=== PATIENT | female | born 1960 | race Two or more races ===

== ENCOUNTER 2025-05-27 23:02 | Emergency (ER) | payer OTHER ==
[~2025-05-27] VITALS: Ht 175.3 cm; Wt 70.4 kg
[~2025-05-27 23:02] MED LIST: PROZAC
[2025-05-27] MEDS: SODIUM CHLORIDE 0.9% 1,000 ML IV STA (23:15)
[2025-05-27] MEDS: FAMOTIDINE (10MG/ML) 2ML VL IV STA (23:16)
[2025-05-27] MEDS: ALBUTEROL SULF 2.5 MG/0.5ML(0.5%) NEB SOLN NEB STA (23:19)
--- NOTE | 2025-05-27 23:59 | ED.PDOC ---
HPI Allergic reaction HPI Comments 64-year-old female with no significant past medical history presents to the ED for the chief complaint of an unknown reason for a allergic reaction, with the associated tongue swelling, shortness of breath and hives to bilateral upper extremities. Patient states that her allergic reaction started approximately 30 minutes before arrival to the ED intense since developed an associated headache with no alleviating factors at this time. Patient denies any reasons for a possible allergic reaction, and notes that she is currently unaware of any known allergies. GCS is noted to be 15, and all vital signs were noted to be stable at this time. Patient denies any chest pain, abdominal pain, blurry vision, generalized weakness, or any other associated symptoms, no modifiers at this time. PHYSICAL EXAM: General: Awake, alert and oriented. No acute distress. Skin: Skin in warm, dry and intact. Appropriate color for ethnicity. HEENT: The head is normocephalic and atraumatic. Conjunctivae are clear without exudates or hemorrhage. Sclera is non-icteric. EOM are intact. No signs of nystagmus. Eyelids are normal in appearance without swelling or lesions. Oral mucosa is pink and moist Neck: The neck is supple with normal range of motion. No JVD. Cardiac: Heart rate and rhythm are normal. No murmurs, gallops, or rubs are auscultated. Respiratory: No stridor. Lung sounds clear to auscultation bilaterally Abdominal: Abdomen is soft, non-tender without distention, guarding or rigidity. Bowel sounds are present and normoactive in all four quadrants. Extremities: Hives noted to bilateral upper extremities Neurological: The patient is awake, alert and oriented to person, place, and time with normal speech. Speech is clear. There is no facial asymmetry. Psychiatric: Appropriate mood and affect. Good judgement and insight. REVIEW OF SYSTEMS: General: No fever, no chills, or fatigue HEENT: No sore throat, no earache, no congestion, no neck pain. Cardiac: No chest pain. No palpitations. Lungs: Shortness of breath, GI: No nausea, no vomiting, no diarrhea, no constipation, no abdominal pain : No dysuria, frequency, or urgency. No hematuria. Musculoskeletal: No joint pain , no joint swelling, no extremity edema. Skin: Hives to bilateral upper extremities Neuro: No headache, no dizziness, no weakness Chief Complaint: Allergic Reaction Time Seen by MD: 23:55 Primary Care Provider: VIKA Reviewed Notes: Nurses Notes, Medications, Allergies Allergies: Coded Allergies: Amoxicillin (Verified Allergy, Unknown, 05/27/25) Home Meds Active Scripts Epinephrine (Anaphylaxis) (Auvi-Q) 0.1 Mg/0.1 Ml Inj, 0.1 MG IJ O PRN for 1 Day, #2 INJ Prov:NOEMY NIELSEN MD 05/28/25 Prednisone (Prednisone) 20 Mg Tab, 20 MG PO DAILY for 5 Days, #5 MG Prov:NOEMY NIELSEN MD 05/28/25 Reported Medications [Prozac] 20 MG No Conflict Check, DAILY 07/13/12 Information Source: Patient Mode of Arrival: Ambulatory Severity: Moderate Rash: Moderate SOB: None Difficulty swallowing: Moderate Pruritus: None Timing: Minutes Duration: Since onset, Minutes Prehospital treatment: None Location: Arm Exposed to: Unknown Developed: Difficult Swallowing, Rash History of: None Modyifying Factors: None Associated Sign and Symptoms: None Past Medical History PAST MEDICAL HISTORY: Denies Surgical History: Hysterectomy Family History Family History: Unobtainable Social History Smoker: Non-Smoker Alcohol: Denies ETOH Use Drugs: Denies Drug Use Lives In: Home Was a procedure done? Was a procedure done?: No Differential diagnosis (all) Differential Diagnosis: Anaphylaxis, Angioedema, Bronchospasm, Drug Reaction, Renal Failure, Respiratory Failure, Shock, Urticaria X-Ray, Labs, Meds, VS Vital Signs Date Time Temp Pulse Resp B/P (MAP) Pulse Ox O2 Delivery O2 Flow Rate FiO2 05/28/25 03:46 97.8 77 16 131/77 (95) 97 97.8 05/27/25 23:22 18 96 Room Air* 0 21 05/27/25 23:12 22 98 Room Air* 0 21 05/27/25 23:12 97.8 83 22 129/90 98 97.8 05/27/25 23:05 97.6 86 19 137/56 (83) 97 97.6 05/27/25 23:05 Room Air* 0 21 PATIENT: GAY MONTEZ ACCT: [id number] UNIT: [id number] : 1960 LOC: ER ROOM / BED: / AGE / SEX: 64 / F ADM STATUS: REG ER SERVICE 24 ORDERING PHYSICIAN: NOEMY NIELSEN MD PROCEDURE(s): CXRP - CHEST PORTABLE REASON: CP ORDER NUMBER(s): [id number], ACCESSION NUMBER(s): [id number] EXAM: XY CHEST PORTABLE DATE OF SERVICE: 05/27/2025 11:49 PM INDICATION: CP TECHNIQUE: Single frontal view. COMPARISON: None FINDINGS: No focal consolidations. No pleural effusion or pneumothorax. Cardiac silhouette is within normal limits. IMPRESSION: 1. No focal consolidations. Time of 1ST Reevaluation: 00:25 Reevaluation 1ST: Unchanged Patient Education/Counseling: Diagnosis, Treatment, Need For Follow Up Family Education/Counseling: No Family Present SEPSIS Sepsis Screen Date sepsis recognized/suspect: May 27, 2025 Time Sepsis recognized/suspect: 2316 Recent Procedure: No On Antibiotic Therapy: No Respiratory Rate >20: No Heart Rate >90: No Temp<36 C (96.8 F) or >38.3 C: No SBP <90 or MAP <65 mmHG: No New Acute Mental Status Change: No Is the patient on CPAP, BIPAP,: No Physician Orders Oxygen Per Hour (05/27/25 21:25) Automatic Toe Laster (05/27/25 21:25) Chest Portable (05/27/25 21:25) Vital Signs Date Time Temp Pulse Resp B/P (MAP) Pulse Ox O2 Delivery O2 Flow Rate FiO2 05/28/25 03:46 97.8 77 16 131/77 (95) 97 97.8 05/27/25 23:22 18 96 Room Air* 0 21 05/27/25 23:12 22 98 Room Air* 0 21 05/27/25 23:12 97.8 83 22 129/90 98 97.8 05/27/25 23:05 97.6 86 19 137/56 (83) 97 97.6 05/27/25 23:05 Room Air* 0 21 Departure 1 Departure Time of Disposition: 02:51 Impression: Primary Impression: Allergic reaction Disposition: 01 HOME / SELF CARE / HOMELESS Condition: Stable Additional Instructions: ED DISCHARGE INSTRUCTIONS Instructions: Please read all instructions provided in this packet carefully. Continue Claritin daily as needed Take prednisone daily for the next 5 days Take epinephrine and then called 911 for severe allergic reaction including facial swelling, tongue swelling, throat itching, trouble breathing Although you have been discharged from the Emergency Department, this does not mean that you have a "clean bill of health". No definitive diagnosis for your symptoms has been made today. It is possible that you are in the process of developing a serious illness. This is why you must return to the ED without fail if any new or worsening symptoms (especially if your symptoms include worsening rash, throat swelling, throat itching, trouble swallowing, chest pain, trouble breathing, abdominal pain, fever, headache, confusion, trouble seeing, or trouble walking) It is also very important that you see a primary care provider (PCP) within the next 1-3 days to follow up. If you are unable to get an appointment, return to the ED for re-evaluation. Allergic Reaction: Care Instructions An allergic reaction is an excessive response from your immune system to a medicine, chemical, food, insect bite, or other substance. A reaction can range from mild to life-threatening. Some people have a mild rash, hives, and itching or stomach cramps. In severe reactions, swelling of your tongue and throat can close up your airway so that you cannot breathe. Follow-up care is a contreras part of your treatment and safety. Be sure to make and go to all appointments, and call your doctor if you are having problems. It's also a good idea to know your test results and keep a list of the medicines you take. How can you care for yourself at home? If you know what caused your allergic reaction, be sure to avoid it. Your allergy may become more severe each time you have a reaction. Take an [id number]-[id number] antihistamine, such as cetirizine (Zyrtec) or loratadine (Claritin), to treat mild symptoms. Read and follow directions on the label. Some antihistamines can make you feel sleepy. Do not give antihistamines to a child unless you have checked with your doctor first. Mild symptoms include sneezing or an itchy or runny nose; an itchy mouth; a few hives or mild itching; and mild nausea or stomach discomfort. Do not scratch hives or a rash. Put a cold, moist towel on them or take cool baths to relieve itching. Put ice packs on hives, swelling, or insect stings for 10 to 15 minutes at a time. Put a thin cloth between the ice pack and your skin. Do not take hot baths or showers. They will make the itching worse. Your doctor may prescribe an epinephrine medicine, such as an epinephrine shot or nasal spray, to carry with you in case you have a severe reaction. Learn how to give yourself the medicine and keep it with you at all times. Make sure it is not . Go to the emergency room every time you have a severe reaction, even if you have used your epinephrine medicine and are feeling better. Symptoms can come back after using the medicine. Wear medical alert jewelry that lists your allergies. You can buy this at most [employer]. When should you call for help? Use an epinephrine medicine, such as an epinephrine shot or nasal spray, if: You think you are having a severe allergic reaction. You have symptoms in more than one body area, such as mild nausea and an itchy mouth. After giving an epinephrine medicine, call 911, even if you feel better. Call 911 anytime you think you may need emergency care. For example, call if: You have symptoms of a severe allergic reaction. These may include: Sudden raised, red areas (hives) all over your body. Swelling of the throat, mouth, lips, or tongue. Trouble breathing. Passing out (losing consciousness). Or you may feel very lightheaded or suddenly feel weak, confused, or restless. Severe belly pain, nausea, vomiting, or diarrhea. Call your doctor now or seek immediate medical care if: You have symptoms of an allergic reaction, such as: A rash or hives (raised, red areas on the skin). Itching. Swelling. Mild belly pain or nausea. Watch closely for changes in your health, and be sure to contact your doctor if: You do not get better as expected. Credits for Allergic Reaction: Care Instructions Current as of: August 16, 2024 Author: [employer] Staff Clinical Review Board All [employer] education is reviewed by a team that includes physic ians, nurses, advanced practitioners, registered dieticians, and other healthcare professionals. e-Prescriptions Epinephrine (Anaphylaxis) (Auvi-Q) 0.1 Mg/0.1 Ml Inj 0.1 MG IJ O PRN for 1 Day, #2 INJ Prov: NOEMY NIELSEN MD 05/28/25 Prednisone (Prednisone) 20 Mg Tab 20 MG PO DAILY for 5 Days, #5 MG Prov: NOEMY NIELSEN MD 05/28/25 Comments 64 year old female with a allergic reaction Patient observed in the emergency department for several hours Symptoms improved after treatment with no recurrence Patient requesting to be discharged Patient well-appearing, nontoxic. Advised prompt follow-up with PCP, return to the ED with any new, worsening or concerning symptoms. Critical Care Note Critical Care Time?: No Stability Stability form required: No Heart Score Heart Score: Heart Score Response (Comments) Value History N/A 0 EKG N/A 0 Age N/A 0 Risk Factors N/A 0 Troponin N/A 0 Total 0 I personally scribed for NOEMY NIELSEN MD ([email or web address]) on 05/27/25 at 23:59. Electronically submitted by Eran Perales ([email or web address]). I personally scribed for NOEMY NIELSEN MD ([email or web address]) on 05/28/25 at 00:13. Electronically submitted by Eran Perales ([email or web address]). NOEMY NIELSEN MD May 27, 2025 23:59
--- NOTE | 2025-05-28 00:06 | DVH ---
EXAM: XY CHEST PORTABLE DATE OF SERVICE: 05/27/2025 11:49 PM INDICATION: CP TECHNIQUE: Single frontal view. COMPARISON: None FINDINGS: No focal consolidations. No pleural effusion or pneumothorax. Cardiac silhouette is within normal limits. IMPRESSION: 1. No focal consolidations.
[2025-05-28] MEDS ORDERED: EPIN0.1I11 IJ (02:53)
[2025-05-28] MEDS ORDERED: PRED20TA2 PO (02:53)
[2025-05-28 03:46] VITALS: BP 131/77; PULSE 77; RESP 16; TEMP 97.8; O2SAT 97
[2025-05-28] MEDS: diphenhdrAMINE HCL 50 MG/1 ML VL IV ONE (03:58)
== END 2025-05-28 04:02 | disposition home or self-care (01) ==
LOC: ER 23:02
DX: L50.9 Urticaria, unspecified (principal); T78.40XA Allergy, unspecified, initial encounter; Z90.710 Acquired absence of both cervix and uterus; Z88.0 Allergy status to penicillin; X58.XXXA Exposure to other specified factors, initial encounter; Z79.899 Other long term (current) drug therapy
CPT/HCPCS: 71045; 94640; 96361; 96372; 96374; 96375; 99284; J0169; J1100; J1200; J3490; J7030